=== PATIENT | male | born 1935 | race Caucasian/White ===

== ENCOUNTER 2017-01-31 16:41 | Emergency (ER) | payer MEDICARE ==
--- NOTE | ~2017-01-31 | CT52 ---
[facility] A Service of [facility] RADIOLOGY TEXT RESULTS PATIENT: RADHA MARES LOCATION: SED : 34 UNIT #: [id number] AGE: [address]: Astrid Martinez MD SEX: M ORDER DR: [id number] [place] [address] [id number] E MR#: [id number] Acc #: [id number] NAME: RADHA MARES : 1935 SEX: M STUDY DATE/TIME: 01/31/2017 15:53 UNIT: SED ROOM: STUDY DESCRIPTION: CT Cervical Spine Wo Cont Attending Physician: Astrid Martinez M.D. Ordering Physician: Astrid Martinez M.D. Primary Care Physician: Ankit Oliva D.O. MEDICAL IMAGING REPORT This report is preliminary unless electronic signature is present. EXAM Cervical spine CT scan without contrast INDICATIONS Fell and hit head and now has neck pain. Patient fell today. TECHNIQUE This CT exam was performed with one or more of the following radiation dose reduction techniques: Automatic exposure control, adjustment of mA and/or kV according to patient size, and iterative reconstruction. Axial 2-mm images were obtained through the cervical spine then sagittal and coronal reconstructions were generated. FINDINGS There are facet degenerative changes throughout the lower half of the cervical spine. There is no fracture visible. There is no subluxation. There is disc space narrowing at C5-6 and 6-7. IMPRESSION Degenerative changes. No evidence of acute injury. Dictated by... Oli Toribio M.D. THIS IS AN ELECTRONICALLY VERIFIED REPORT Oli Toribio M.D. at 02/01/2017 6:04 AM FEL/marielle TD: 01/31/2017 22:28 JOB #: [id number] [facility] A Service of [facility] RADIOLOGY TEXT RESULTS PATIENT: RADHA MARES LOCATION: SED : 34 UNIT #: [id number] AGE: [address]: Astrid Martinez MD SEX: M ORDER DR: MEDICAL IMAGING REPORT
--- NOTE | ~2017-01-31 | CT71 ---
[facility]. [facility] A Service [facility] RADIOLOGY TEXT RESULTS PATIENT: RADHA MARES LOCATION: SED : 34 UNIT #: [id number] AGE: [address]: Astrid Martinez MD SEX: M ORDER DR: [id number] [place] [address] [id number] E MR#: [id number] Acc #: [id number] NAME: RADHA MARES : 1935 SEX: M STUDY DATE/TIME: 01/31/2017 15:49 UNIT: SED ROOM: STUDY DESCRIPTION: CT Head Wo Contrast Attending Physician: Astrid Martinez M.D. Ordering Physician: Astrid Martinez M.D. Primary Care Physician: Ankit Oliva D.O. MEDICAL IMAGING REPORT This report is preliminary unless electronic signature is present. EXAM CT scan of the head without contrast INDICATIONS Fall with head trauma. Patient is on blood thinners. Patient fell today. COMPARISON 09/24/2015. FINDINGS This CT exam was performed with one or more of the following radiation dose reduction techniques: Automatic exposure control, adjustment of mA and/or kV according to patient size, and iterative reconstruction. Unenhanced images were obtained through the brain. There is mild generalized atrophy. There is no mass or extraaxial fluid collection or hemorrhage. There is no fracture. IMPRESSION Mild atrophy, otherwise normal. Dictated by... Oli Toribio M.D. THIS IS AN ELECTRONICALLY VERIFIED REPORT Oli Toribio M.D. at 02/01/2017 6:04 AM FEL/psc TD: 01/31/2017 22:06 JOB #: [id number] [facility] A Service of [facility] RADIOLOGY TEXT RESULTS PATIENT: RADHA MARES LOCATION: SED : 34 UNIT #: [id number] AGE: [address]: Astrid Martinez MD SEX: M ORDER DR: MEDICAL IMAGING REPORT
[~2017-01-31 16:41] MED LIST: ACETAMINOPHEN PO; ALLOPURINOL300 MG PO; AMBIEN10 MG PO; ANTIVERT PO; ASPIRIN ENTERI325 M1 PO; ASPIRIN81 M2 PO; ATENOLOL25 MG PO; COLCRYS0.6 MG PO; FLOVENT DI50 MCG/DIS INH; INDOMETHACIN25 MG PO; LOPID600 MG PO; LORTAB 7.5-5001 TAB PO; PHENERGAN25 MG PO; PRADAXA150 MG PO; PRILOSEC20 M1 PO; PRILOSEC20 MG PO; RANITIDINE HCL300 M1 PO; TENORMIN25 MG PO; ZETIA PO
== END 2017-01-31 17:22 | disposition home or self-care (01) ==
LOC: SED 16:41
DX: S06.0X0A Concussion without loss of consciousness, initial encounter (principal); S61.012A Laceration without foreign body of left thumb without damage to nail, initial encounter; Z88.8 Allergy status to other drugs, medicaments and biological substances; Z86.79 Personal history of other diseases of the circulatory system; W17.89XA Other fall from one level to another, initial encounter; Y92.009 Unspecified place in unspecified non-institutional (private) residence as the place of occurrence of the external cause
CPT/HCPCS: 12001; 70450; 72125; 99284

== ENCOUNTER 2017-02-06 10:50 | Emergency (ER) | payer MEDICARE | END 2017-02-06 10:57 | disposition home or self-care (01) | LOC: SED 10:50 | DX: S61.012D Laceration without foreign body of left thumb without damage to nail, subsequent encounter (principal); Z79.82 Long term (current) use of aspirin; Z79.899 Other long term (current) drug therapy; Z88.8 Allergy status to other drugs, medicaments and biological substances; X58.XXXD Exposure to other specified factors, subsequent encounter | CPT/HCPCS: 99281 ==